=== PATIENT | male | born 1940 | race Caucasian/White ===

== ENCOUNTER 2020-01-19 08:25 | Outpatient (CLI) | payer MEDICARE, OTHER, SELFPAY ==
[2020-01-19 09:06] LABS: Alanine Aminotransferase 21 U/L (4-50); Albumin Level 4.1 g/dL (3.5-5.1); Alkaline Phosphatase 111 U/L (38-126); Aspartate Amino Transferase 32 U/L (17-59); Blood Urea Nitrogen 34 mg/dL (9-20); Calcium 9.5 mg/dL (8.4-10.2); Carbon Dioxide 30 mmol/L (22-30); Chloride 105 mmol/L (98-107); Estimated Glomerular Filt Rate 49; Glucose 121 mg/dL (75-110); Potassium 4.6 mmol/L (3.4-5.0); Sodium 141 mmol/L (137-145)
== END 2020-01-19 08:26 | disposition home or self-care (01) ==
PROVIDERS: PCP Family Medicine; Visit Provider Family Medicine
DX: I10 Essential (primary) hypertension (principal)
CPT/HCPCS: 36415; 80053

== ENCOUNTER 2020-07-11 01:45 | Outpatient (CLI) | payer MEDICARE, SELFPAY ==
[2020-07-11 18:23] LABS: SARS-CoV-2 RNA PCR Negative
== END 2020-07-11 01:46 | disposition home or self-care (01) ==
LOC: ANHCOVIDDT 01:45
PROVIDERS: Visit Provider Internal Medicine Gastroenterology
DX: Z01.812 Encounter for preprocedural laboratory examination (principal); Z20.828 Contact with and (suspected) exposure to other viral communicable diseases
CPT/HCPCS: 87635; C9803; U0003

== ENCOUNTER 2020-07-13 00:46 | Day surgery (SDC) | payer MEDICARE, SELFPAY ==
[2020-07-04 13:20] VITALS: BMI 30.4
[2020-07-13 06:41] VITALS: BP 157/66; PULSE 62; RESP 18; TEMP 36.6; O2SAT 92
[2020-07-13] MEDS: LACTATED RINGERS 1,000 ML 150 ML IV CONT (07:02)
[2020-07-13 07:30] LABS: INR 1.3; Prothrombin Time 15.5 Seconds (11.1-14.7)
--- NOTE | 2020-07-13 07:35 | WPDANESEPPF ---
Anes - Initial Pre Proc Eval Procedure: Operation Date: 07/13/20 08:00 Proposed Procedures p Esophagogastroduodenoscopy - Nico Blackwood MD Date/Time: 07/13/20 07:35 Surgeon: Nico Blackwood MD Pre Op Diagnosis: dysphagia Patient Data Age: 79 Gender: M Height: 6 ft 1 in Weight: 104.9 kg Last Vital Signs Temp 97.8 F 07/13/20 06:41 Pulse 62 07/13/20 06:41 Resp 18 07/13/20 06:41 BP 157/66 H 07/13/20 06:41 Pulse Ox 92 07/13/20 06:41 Allergies Allergy/AdvReac Type Severity Reaction Status Date / Time Penicillins Allergy Unknown Rash Verified 07/13/20 06:59 Home Medications Medication Instructions Recorded Confirmed Type albuterol sulfate 90 mcg/actuation 1 puff INHALATION Q4H PRN 09/24/19 07/04/20 History aerosol inhaler atorvastatin 20 mg tablet 20 mg PO DAILY 09/24/19 07/04/20 History celecoxib 200 mg capsule 200 mg PO DAILY 09/24/19 07/04/20 History fluticasone furoate 200 1 inhalation INHALATION DAILY 09/24/19 07/04/20 History mcg-vilanterol 25 mcg/dose inhalation powder lisinopril 40 mg tablet 40 mg PO DAILY 09/24/19 07/04/20 History lorazepam 0.5 mg tablet 0.5 mg PO TID PRN 09/24/19 07/04/20 History spironolactone 25 0.5 tablet PO DAILY tablet 09/24/19 07/04/20 History mg-hydrochlorothiazide 25 mg tablet warfarin 4 mg tablet 4 mg PO QMWF 09/24/19 07/04/20 History furosemide 40 mg tablet 40 mg PO QAM #90 tablet 03/24/20 07/04/20 Rx famotidine 20 mg tablet 20 mg PO BID #60 tablet 05/23/20 07/04/20 Rx Laboratory Tests 07/13/20 06:53 PT 15.5 Seconds H Seconds (11.1-14.7) INR 1.3 Patient hx anesthesia problems: none Family hx anesthesia problems: none PMFSH Past Medical History Medical History (Updated 07/13/20 @ 07:34 by Jayy Landin MD) Chronic atrial fibrillation COPD (chronic obstructive pulmonary disease) Hypertensive heart disease with heart failure Surgical History Surgical History (Updated 07/13/20 @ 07:34 by Jayy Landin MD) S/P AVR (aortic valve replacement) Social History Social History (Updated 05/17/20 @ 10:54 by Samantha Corey) Smoking packs per day: 0.75 Smoking cigarettes per day: 15.0 Years smoked: 60 Smoking pack-years: 45.00 Smoking status: Heavy tobacco smoker Tobacco type: cigarettes Second hand tobacco smoke exposure: No Alcohol intake: current Drinks per week: 2 Substance use: never Substance use type: does not use Gender identity (if verbalized by the patient): Male Anes - Eval Final PreProcedure Day of Procedure 07/13/20 07:35 Patient weight: normal Heart: regular rate and rhythm Lungs: clear to auscultation Airway: Mallampati scale class III Neurological: alert and oriented Last oral intake: >/= 8 hours ASA classification: III Emergent: no Anesthetic plan: proceed Anesthesia type and monitoring: general GIVS and standard monitoring Informed Consent: The patient's anesthetic plan and its attendant risks and benefits were discussed with the patient/family/POA. Questions were solicited and answers provided to the satisfaction of the patient/family/POA.
--- NOTE | 2020-07-13 07:51 | WPDGICN ---
Assessment and Plan Assessment and plan (1) Dysphagia: Code(s): R13.10 - Dysphagia, unspecified Status: Acute Assessment and Plan: Patient is difficulty swallowing. With food catching the mid substernal portion the chest strongly suggestive of esophageal narrowing. Plan is for EGD to evaluate. Anticoagulation will be held under the direction of the cardiology service prior to procedure so that dilatation and/or biopsy may be accomplished. Further recommendations will be given after endoscopy. (2) S/P AVR (aortic valve replacement): Code(s): Z95.2 - Presence of prosthetic heart valve Status: Acute (3) Current use of terminal system operator anticoagulation: Code(s): Z79.01 - ad terminal makeup operator (current) use of anticoagulants Status: Acute GI Consult Note Consult date/time: 07/13/20 07:51 HPI: Agustín So is a 79 year old male Seen in evaluation at the request of Dr. Truman Tee. Patient complains of difficulty swallowing over the last year. When eats food will catch in the mid substernal portion of the chest. This often requires it to be regurgitated. States he has difficulty both with solids and liquids. He does notice concomitant discomfort pain when this happens. This occurs on a very frequent basis almost daily. Patient has to consistently be careful with his food intake. Patient reports low weight loss 1 year ago. This is an unspecified amount. Appears to have stabilized this year. Patient denies any bleeding. He denies any prior history of heartburn. He is maintained on omeprazole chronically. Past medical history is significant for a mechanical heart valve , He also has a history of atrial fibrillation.for which she is on warfarin anticoagulation this will be held for several days prior To endoscopy. with Lovenox under the direction of his cardiology service. Review of Systems Review of Systems: All systems reviewed & are unremarkable except as noted in HPI and below PMFSH Past Medical History Medical History (Updated 07/13/20 @ 07:54 by Nico Blackwood MD) Chronic atrial fibrillation COPD (chronic obstructive pulmonary disease) Hypertensive heart disease with heart failure Surgical History Surgical History (Updated 07/13/20 @ 07:54 by Nico Blackwood MD) S/P AVR (aortic valve replacement) Social History Social History (Updated 05/17/20 @ 10:54 by Samantha Corey) Smoking packs per day: 0.75 Smoking cigarettes per day: 15.0 Years smoked: 60 Smoking pack-years: 45.00 Smoking status: Heavy tobacco smoker Tobacco type: cigarettes Second hand tobacco smoke exposure: No Alcohol intake: current Drinks per week: 2 Substance use: never Substance use type: does not use Gender identity (if verbalized by the patient): Male Meds Home Medications and Allergies Home Medications Medication Instructions Recorded Confirmed Type albuterol sulfate 90 mcg/actuation 1 puff INHALATION Q4H PRN 09/24/19 07/04/20 History aerosol inhaler atorvastatin 20 mg tablet 20 mg PO DAILY 09/24/19 07/04/20 History celecoxib 200 mg capsule 200 mg PO DAILY 09/24/19 07/04/20 History fluticasone furoate 200 1 inhalation INHALATION DAILY 09/24/19 07/04/20 History mcg-vilanterol 25 mcg/dose inhalation powder lisinopril 40 mg tablet 40 mg PO DAILY 09/24/19 07/04/20 History lorazepam 0.5 mg tablet 0.5 mg PO TID PRN 09/24/19 07/04/20 History spironolactone 25 0.5 tablet PO DAILY tablet 09/24/19 07/04/20 History mg-hydrochlorothiazide 25 mg tablet warfarin 4 mg tablet 4 mg PO QMWF 09/24/19 07/04/20 History furosemide 40 mg tablet 40 mg PO QAM #90 tablet 03/24/20 07/04/20 Rx famotidine 20 mg tablet 20 mg PO BID #60 tablet 05/23/20 07/04/20 Rx Allergies Allergy/AdvReac Type Severity Reaction Status Date / Time Penicillins Allergy Unknown Rash Verified 07/13/20 06:59 Vital Signs Vital Signs - 24 hr 07/13/20 06:41 Temperature 97.8 F Pulse Rate 62 Respi
[2020-07-13] MEDS: BENZOCAINE (*SP) 60 ML SPRAY CAN (HURRICAINE) 1 SPRAY MUCOUS MEM (08:06)
[2020-07-13 08:21] VITALS: BP 138/105; PULSE 64; RESP 16; O2SAT 93
[2020-07-13 08:31] VITALS: BP 116/59; PULSE 62; RESP 22; O2SAT 99
[2020-07-13 08:41] VITALS: BP 122/66; PULSE 56; RESP 15; O2SAT 98
== END 2020-07-13 08:55 | disposition home or self-care (01) ==
PROVIDERS: Visit Provider Internal Medicine Gastroenterology
PROC: 0DJ08ZZ Inspection of Upper Intestinal Tract, Via Natural or Artificial Opening Endoscopic (ICD-10-PCS; CPT 43235; principal; 2020-07-13 08:00)
DX: R13.10 Dysphagia, unspecified (principal); K21.0 Gastro-esophageal reflux disease with esophagitis; K26.3 Acute duodenal ulcer without hemorrhage or perforation; K29.80 Duodenitis without bleeding; Q39.4 Esophageal web; Z95.2 Presence of prosthetic heart valve; Z79.01 Long term (current) use of anticoagulants
CPT/HCPCS: 43239; 43450; 36415; 85610; 88305; J2704; J3370; J7120

== ENCOUNTER 2020-09-18 07:05 | Outpatient (CLI) | payer MEDICARE, SELFPAY ==
[2020-09-18 08:02] LABS: Hematocrit 39.3 % (42.0-52.0); Hemoglobin 12.8 g/dL (14.0-18.0); Mean Corpuscular HGB Conc 32.6 g/dl (32-36); Mean Corpuscular Hemoglobin 28.7 pg (26-34); Mean Corpuscular Volume 88.1 fl (80-100); Mean Platelet Volume 9.9 fl (7.4-10.4); Platelet Count Result 171 k/mm3 (150-375); Red Blood Count 4.46 M/mm3 (4.6-6.20); Red Cell Distribution Width 13.5 % (11.5-14.5); White Blood Count 7.5 K/mm3 (4.5-10.0)
[2020-09-18 08:12] LABS: Add Urine Microscopic? YES; Appearance Urine Clear (Clear); Bilirubin Urine Negative (Negative); Blood Urine 2+ (Negative); Color Urine Yellow (Yellow); Glucose Urine UA Negative (Negative); Ketones Urine Negative (Negative); Leukocyte Esterase Ur 1+ LEU/UL (Negative); Mucus Urine Rare /lpf; Nitrate Urine Negative (Negative); Protein Urine 2+ mg/dL (Negative); Specific Grav Ur 1.017 (1.001-1.035); Squamous Epithelial Cell Urine Rare /hpf (Few); Urobilinogen Urine Negative mg/dL (<2.0)
[2020-09-18 08:15] LABS: Alanine Aminotransferase 16 U/L (4-50); Albumin Level 3.7 g/dL (3.5-5.1); Alkaline Phosphatase 110 U/L (38-126); Anion Gap 3 mmol/L (8-16); Aspartate Amino Transferase 28 U/L (17-59); Bilirubin,Total 0.7 mg/dL (0.2-1.3); Blood Urea Nitrogen 34 mg/dL (9-20); Calcium 9.4 mg/dL (8.4-10.2); Carbon Dioxide 31 mmol/L (22-30); Chloride 106 mmol/L (98-107); Cholesterol 123 mg/dL (0-200); Estimated Glomerular Filt Rate 59; Glucose 108 mg/dL (75-110); HDL Direct 37 mg/dL; Potassium 4.9 mmol/L (3.4-5.0); Sodium 140 mmol/L (137-145); Triglycerides 82 mg/dL (<150)
[2020-09-18 08:26] LABS: LDL Cholesterol Direct 59 mg/dL
== END 2020-09-18 07:06 | disposition home or self-care (01) ==
PROVIDERS: Visit Provider Family Medicine
DX: E78.2 Mixed hyperlipidemia (principal); R53.83 Other fatigue; I10 Essential (primary) hypertension
CPT/HCPCS: 36415; 80053; 80061; 81001; 84443; 85027; 87086; 87088

== ENCOUNTER 2021-01-30 08:36 | Outpatient (CLI) | payer MEDICARE, SELFPAY ==
--- NOTE | ~2021-01-30 | XR_ITS ---
EXAMINATION: XR chest 2V DATE: 01/30/2021 08:57 INDICATION: Shortness of breath, cough and weakness TECHNIQUE: PA and lateral views of the chest were obtained. COMPARISON: Chest radiograph dated 09/24/2019 FINDINGS: Again seen are bilateral coarse reticular opacities with peripheral and lower lung predominance. Mild patchy airspace opacities as well as bronchiectatic changes at the lower lung zones. No pneumothorax or definitive pleural effusion. Cardiomegaly. Median sternotomy wires and mediastinal surgical clips are seen, likely from prior coronary artery bypass grafting. Prosthetic aortic valve. Osteoarthriti s at the bilateral shoulders, severe at the right glenohumeral joint. IMPRESSION: 1. Slight progression in bilateral interstitial airspace disease with lower lung predominance with as sociated bronchiectatic changes consistent with chronic interstitial lung disease, possibly with supe rimposed bibasilar pulmonary edema or pneumonia. 2. Cardiomegaly. Reviewed, dictated and finalized at location B. IMPRESSION: 1. Slight progression in bilateral interstitial airspace disease with lower arun g predominance with associated bronchiectatic changes consistent with chronic i nterstitial lung disease, possibly with superimposed bibasilar pulmonary edema or pneumonia. 2. Cardiomegaly.
[2021-01-30 09:18] LABS: Basophils Percent Auto 0.4 % (0.2-1.2); Eosinophils Absolute Auto 0.1 K/mm3 (0-0.3); Eosinophils Percent Auto 1.1 % (0-4.4); Hematocrit 38.3 % (42.0-52.0); Hemoglobin 11.7 g/dL (14.0-18.0); Immature Granulocyte Absolute 0.02 K/mm3 (0.00-0.031); Immature Granulocyte Percent A 0.3 % (0-0.5); Lymphocytes Absolute Auto 0.75 K/mm3 (0.9-3.2); Lymphocytes Percent Auto 10.7 % (18.3-44.2); Mean Corpuscular HGB Conc 30.5 g/dl (32-36); Mean Corpuscular Hemoglobin 26.7 pg (26-34); Mean Corpuscular Volume 87.4 fl (80-100); Mean Platelet Volume 10.7 fl (7.4-10.4); Monocytes Absolute Auto 0.7 K/mm3 (0.1-0.6); Monocytes Percent Auto 9.3 % (2.6-8.5); Neutrophils Absolute Auto 5.5 K/mm3 (1.3-6.7); Neutrophils Percent Auto 78.2 % (45.5-73.1); Platelet Count Result 174 k/mm3 (150-375); Red Blood Count 4.38 M/mm3 (4.6-6.20); Red Cell Distribution Width 15.5 % (11.5-14.5)
[2021-01-30 09:31] LABS: Anion Gap 4 mmol/L (8-16); Blood Urea Nitrogen 33 mg/dL (9-20); Calcium 8.9 mg/dL (8.4-10.2); Carbon Dioxide 34 mmol/L (22-30); Chloride 104 mmol/L (98-107); Estimated Glomerular Filt Rate 45; Glucose 179 mg/dL (75-110); Potassium 3.7 mmol/L (3.4-5.0); Sodium 142 mmol/L (137-145)
[2021-01-30 09:39] LABS: NT Pro B Type Natriuretic Pept 1670 PG/ML (5-100)
== END 2021-01-30 08:37 | disposition home or self-care (01) ==
PROVIDERS: PCP Family Medicine; Visit Provider Internal Medicine Cardiovascular Disease
DX: R06.02 Shortness of breath (principal); I51.9 Heart disease, unspecified; R05 Cough; R53.1 Weakness; M19.012 Primary osteoarthritis, left shoulder; M19.011 Primary osteoarthritis, right shoulder; Z95.2 Presence of prosthetic heart valve
CPT/HCPCS: 36415; 71046; 80048; 83880; 85025

== ENCOUNTER 2021-02-12 07:42 | Outpatient (CLI) | payer MEDICARE, SELFPAY ==
[2021-02-12 08:13] LABS: Anion Gap 5 mmol/L (8-16); Blood Urea Nitrogen 65 mg/dL (9-20); Calcium 8.9 mg/dL (8.4-10.2); Carbon Dioxide 37 mmol/L (22-30); Chloride 99 mmol/L (98-107); Estimated Glomerular Filt Rate 29; Glucose 244 mg/dL (75-110); Potassium 4.1 mmol/L (3.4-5.0); Sodium 141 mmol/L (137-145)
== END 2021-02-12 07:43 | disposition home or self-care (01) ==
PROVIDERS: PCP Family Medicine; Visit Provider Nurse Practitioner Adult Health
DX: I50.43 Acute on chronic combined systolic (congestive) and diastolic (congestive) heart failure (principal)
CPT/HCPCS: 36415; 80048

== ENCOUNTER 2021-02-19 13:04 | Outpatient (CLI) | payer MEDICARE, SELFPAY ==
[2021-02-19 13:44] LABS: Anion Gap 5 mmol/L (8-16); Blood Urea Nitrogen 50 mg/dL (9-20); Calcium 9.5 mg/dL (8.4-10.2); Carbon Dioxide 33 mmol/L (22-30); Chloride 105 mmol/L (98-107); Estimated Glomerular Filt Rate 32; Glucose 114 mg/dL (75-110); Potassium 4.8 mmol/L (3.4-5.0); Sodium 143 mmol/L (137-145)
== END 2021-02-19 13:05 | disposition home or self-care (01) ==
PROVIDERS: PCP Family Medicine; Visit Provider Internal Medicine Cardiovascular Disease
DX: I51.9 Heart disease, unspecified (principal)
CPT/HCPCS: 36415; 80048

== ENCOUNTER 2021-04-10 15:29 | Outpatient (CLI) | payer BC, SELFPAY ==
--- NOTE | ~2021-04-10 | XR_ITS ---
XR thoracic spine 3V 04/10/2021 15:46 Indication: Back pain Procedure: 3 views thoracic spine Comparison: No prior studies for comparison. Findings: Status post median sternotomy for CABG. There is a prosthetic heart valve. Cardiomegaly. Th ere is chronic interstitial lung disease bilaterally. There is atherosclerosis. There is mild disc na rrowing and endplate degenerative change at multiple levels. No fracture or traumatic malalignment. N o evidence for listhesis. No significant paraspinal soft tissue abnormality. There is tracheobronchia l calcification. Impression: 1: Mild thoracic spondylosis. Reviewed, dictated and finalized at location A. Impression: 1: Mild thoracic spondylosis.
== END 2021-04-10 15:30 | disposition home or self-care (01) ==
LOC: ANHIMG 15:33
PROVIDERS: PCP Family Medicine; Visit Provider Physician Assistant
DX: M54.6 Pain in thoracic spine (principal); M47.814 Spondylosis without myelopathy or radiculopathy, thoracic region
CPT/HCPCS: 72072

== ENCOUNTER 2021-06-29 08:47 | Emergency (ER) | payer BC, SELFPAY ==
--- NOTE | ~2021-06-29 | XR_ITS ---
XR foot LT 2V DATE: 06/29/2021 09:30 INDICATION: Pain at medial aspect and ball of foot. No injury. TECHNIQUE: AP and lateral views COMPARISON: None FINDINGS: There is hallux valgus and bunion deformity. There is mild to moderate osteoarthritis at th e first metatarsophalangeal joint. Prominent plantar calcaneal enthesopathy. No fracture, dislocation, periosteal reaction or bone destruction. IMPRESSION: Hallux valgus and bunion deformity Osteoarthritis at first metatarsophalangeal joint Prominent plantar calcaneal enthesopathy Reviewed, dictated and finalized at location A.
--- NOTE | 2021-06-29 09:31 | ED.LOWEXIN ---
HPI - Extremity Injury (Lower) General Chief Complaint: Extremity Injury, Lower Stated Complaint: left foot pain Time Seen by Provider: 06/29/21 09:18 History of Present Illness HPI Narrative: 80 yo w/ history of gout presents to the ED for foot pain. He has had pain in the left foot at the base of the toes for the past 2 days. Minimal pain when nothing is touching it severe pain with pressure. He had a previous episode in the oposite foot. It sounds like he had elevated uric acid and was told that it was most likely gout. Related Data Home Medications Medication Instructions Recorded Confirmed albuterol sulfate 90 mcg/actuation 1 puff INHALATION Q4H PRN 09/24/19 04/10/21 aerosol inhaler lisinopril 40 mg tablet 40 mg PO DAILY 09/24/19 04/10/21 lorazepam 0.5 mg tablet 0.5 mg PO TID PRN 09/24/19 04/10/21 spironolactone 25 0.5 tablet PO DAILY tablet 09/24/19 04/10/21 mg-hydrochlorothiazide 25 mg tablet warfarin 4 mg tablet 4 mg PO QMWF 09/24/19 04/10/21 furosemide 40 mg tablet 20 mg PO QAM tablet 03/13/21 04/10/21 Allergies Allergy/AdvReac Type Severity Reaction Status Date / Time Penicillins Allergy Unknown Rash Verified 06/29/21 09:56 Review of Systems Constitutional: Constitutional: Denies chills and Denies fever(s) Cardiovascular: Cardiovascular: Denies chest pain Respiratory: Respiratory: Denies dyspnea Gastrointestinal: Gastrointestinal: Denies nausea Genitourinary: Genitourinary: Reports no additional male genitourinary complaints Musculoskeletal: Musculoskeletal: Denies back pain Neurologic: Denies numbness and Denies weakness FOR[facility]LY [facility], [facility] Past Medical History Medical History Chronic atrial fibrillation Chronic kidney disease, stage 3 unspecified COPD (chronic obstructive pulmonary disease) Hyp ht/kd NOS I-IV w hf Hypertensive heart disease with heart failure Surgical History Surgical History S/P AVR (aortic valve replacement) Social History Social History Smoking packs per day: 0.75 Smoking cigarettes per day: 15.0 Years smoked: 60 Smoking pack-years: 45.00 Smoking status: Heavy tobacco smoker Tobacco type: cigarettes Second hand tobacco smoke exposure: No Alcohol intake: current Drinks per week: 2 Substance use: never Substance use type: does not use Gender identity (if verbalized by the patient): Male Exam Const: General: no acute distress and alert Orientation/consciousness: patient oriented x3 HENMT: Head: normal to inspection Resp: Effort & Inspection: normal respiratory effort Auscultation: clear to auscultation bilaterally Cardio: Rate: regular rate Rhythm: abnormal rhythm irregularly irregular Heart sounds: Murmur heart sound present Skin: General skin exam: normal color Neuro: General: patient oriented x3, moves all extremities and no focal motor deficits Speech: normal speech Extrem: Other: tenderness to the plantar aspect of the foot from midfoot. No significant swelling or redness Course Vital Signs Vital signs: Vital Signs Temperature 36.4 C L 06/29/21 09:47 Pulse Rate 62 06/29/21 09:47 Respiratory Rate 18 06/29/21 09:47 Blood Pressure 133/58 L 06/29/21 09:47 Pulse Oximetry 95 06/29/21 09:47 Temperature 36.4 C L 06/29/21 09:47 Pulse Rate 62 06/29/21 09:47 Respiratory Rate 18 06/29/21 09:47 Blood Pressure 133/58 L 06/29/21 09:47 Pulse Oximetry 95 06/29/21 09:47 MDM - Extremity Injury (Lower) Imaging Data Radiologist's impression: ITS Impressions Foot X-Ray 06/29/21 09:32 IMPRESSION: Hallux valgus and bunion deformity Osteoarthritis at first metatarsophalangeal joint Prominent plantar calcaneal enthesopathy Discharge Plan Discharge Clinical Impression: Acute foot pain Qualifiers: Laterality: left Artie
[2021-06-29] MEDS: predniSONE 20 MG TABLET 40 MG PO (09:39)
[2021-06-29] MEDS: HYDROcodone/acetaminophen (*CRX) 5-325 MG TABLET 1 TAB PO (09:40)
[2021-06-29 09:47] VITALS: BP 133/58; PULSE 62; RESP 18; TEMP 36.4; O2SAT 95
== END 2021-06-29 11:07 | disposition home or self-care (01) ==
PROVIDERS: Emergency Provider Emergency Medicine; PCP Family Medicine
DX: M79.672 Pain in left foot (principal); I48.20 Chronic atrial fibrillation, unspecified; I13.0 Hypertensive heart and chronic kidney disease with heart failure and stage 1 through stage 4 chronic kidney disease, or unspecified chronic kidney disease; N18.30 Chronic kidney disease, stage 3 unspecified; I50.9 Heart failure, unspecified; F17.210 Nicotine dependence, cigarettes, uncomplicated; Z79.01 Long term (current) use of anticoagulants; Z95.2 Presence of prosthetic heart valve; Z88.0 Allergy status to penicillin
CPT/HCPCS: 73620; 99283; A9270; J7512

== ENCOUNTER 2021-07-18 09:27 | Outpatient (CLI) | payer MEDICARE, SELFPAY ==
[2021-07-18 10:26] LABS: Uric Acid 11.5 mg/dL (3.5-8.5)
== END 2021-07-18 09:28 | disposition home or self-care (01) ==
PROVIDERS: PCP Family Medicine; Visit Provider Family Medicine
DX: M79.672 Pain in left foot (principal); M10.9 Gout, unspecified
CPT/HCPCS: 36415; 84550

== ENCOUNTER → 2021-08-04 00:23 | Outpatient (CLI) | payer MEDICARE, SELFPAY ==
[2021-08-04 18:09] LABS: SARS-CoV-2 RNA PCR Negative
== END ==
PROVIDERS: PCP Family Medicine; Visit Provider Physician Assistant
DX: Z20.822 Contact with and (suspected) exposure to COVID-19 (principal); R05 Cough
CPT/HCPCS: C9803; U0003; U0005

== ENCOUNTER 2021-09-11 09:17 | Outpatient (CLI) | payer MEDICARE, SELFPAY ==
[2021-09-11 09:46] LABS: Hematocrit 39.1 % (42.0-52.0); Hemoglobin 12.2 g/dL (14.0-18.0); Mean Corpuscular HGB Conc 31.2 g/dl (32-36); Mean Corpuscular Volume 93.1 fl (80-100); Mean Platelet Volume 9.7 fl (7.4-10.4); Platelet Count Result 180 k/mm3 (150-375); Red Cell Distribution Width 15.3 % (11.5-14.5); White Blood Count 8.6 K/mm3 (4.5-10.0)
[2021-09-11 09:55] LABS: Add Urine Microscopic? YES; Appearance Urine Clear (Clear); Bilirubin Urine Negative (Negative); Blood Urine 1+ (Negative); Color Urine Yellow (Yellow); Glucose Urine UA Negative (Negative); Ketones Urine Negative (Negative); Leukocyte Esterase Ur Trace LEU/UL (NEGATIVE); Mucus Urine Rare /lpf; Nitrate Urine Negative (Negative); Protein Urine 1+ mg/dL (Negative); Specific Grav Ur 1.014 (1.001-1.035); Squamous Epithelial Cell Urine Rare /hpf (Few)
[2021-09-11 10:00] LABS: Alanine Aminotransferase 18 U/L (4-50); Alkaline Phosphatase 117 U/L (38-126); Anion Gap 7 mmol/L (8-16); Aspartate Amino Transferase 33 U/L (17-59); Bilirubin,Total 1.1 mg/dL (0.2-1.3); Blood Urea Nitrogen 32 mg/dL (9-20); Calcium 9.4 mg/dL (8.4-10.2); Carbon Dioxide 31 mmol/L (22-30); Chloride 103 mmol/L (98-107); Cholesterol 123 mg/dL (0-200); Estimated Glomerular Filt Rate 53; Glucose 117 mg/dL (65-110); HDL Direct 48 mg/dL; Potassium 4.7 mmol/L (3.4-5.0); Sodium 141 mmol/L (137-145); Triglycerides 71 mg/dL (<150)
[2021-09-11 10:02] LABS: Hemoglobin A1C 6.6 % (<5.7)
[2021-09-11 10:11] LABS: LDL Cholesterol Direct 48 mg/dL
== END 2021-09-11 09:18 | disposition home or self-care (01) ==
LOC: ANHLAB 09:22
PROVIDERS: PCP Family Medicine; Visit Provider Family Medicine
DX: Z00.00 Encounter for general adult medical examination without abnormal findings (principal); E78.5 Hyperlipidemia, unspecified; I25.10 Atherosclerotic heart disease of native coronary artery without angina pectoris; I50.22 Chronic systolic (congestive) heart failure; R73.01 Impaired fasting glucose
CPT/HCPCS: 36415; 80053; 80061; 81001; 83036; 84443; 85027

== ENCOUNTER 2021-09-26 11:33 | Outpatient (CLI) | payer MEDICARE, SELFPAY ==
--- NOTE | ~2021-09-26 | XR_ITS ---
XR chest 2V 09/26/2021 11:56 Indication: Shortness of breath and cough Procedure: PA and lateral views of the chest Comparison: Comparison to multiple prior studies sequentially, with oldest reviewed study dated 04/03. Findings: Status post median sternotomy for CABG. Moderate cardiomegaly. There is atherosclerosis and ectasia of the aorta. There is continued progression of coarse interstitial infiltrates peripherally with basilar predominance. Impression: 1: Continued progression of coarse interstitial infiltrates bilaterally, consistent with chronic pulm onary fibrosis cannot exclude chronic mild interstitial edema. Reviewed, dictated and finalized at location A. U[facility] SORTER Impression: 1: Continued progression of coarse interstitial infiltrates bilaterally, consis tent with chronic pulmonary fibrosis cannot exclude chronic mild interstitial e terry.
== END 2021-09-26 11:34 | disposition home or self-care (01) ==
PROVIDERS: PCP Family Medicine; Visit Provider Nurse Practitioner Family
DX: R05.9 Cough, unspecified (principal); R91.8 Other nonspecific abnormal finding of lung field
CPT/HCPCS: 71046

== ENCOUNTER 2021-10-29 13:32 | Outpatient (CLI) | payer MEDICARE, SELFPAY ==
[2021-10-29 14:41] LABS: Anion Gap 6 mmol/L (8-16); Blood Urea Nitrogen 35 mg/dL (9-20); Calcium 9.4 mg/dL (8.4-10.2); Carbon Dioxide 33 mmol/L (22-30); Chloride 101 mmol/L (98-107); Estimated Glomerular Filt Rate 34; Glucose 124 mg/dL (65-110); Potassium 4.7 mmol/L (3.4-5.0); Sodium 140 mmol/L (137-145)
== END 2021-10-29 13:33 | disposition home or self-care (01) ==
LOC: ANHLAB 13:36
PROVIDERS: PCP Family Medicine; Visit Provider Internal Medicine Cardiovascular Disease
DX: I51.9 Heart disease, unspecified (principal)
CPT/HCPCS: 36415; 80048

== ENCOUNTER 2021-11-02 09:32 | Outpatient (CLI) | payer MEDICARE, SELFPAY ==
[2021-11-05 07:35] LABS: Anti Cyclic Citrullinated Pept <16 Units (<20)
[2021-11-05 19:13] LABS: JO 1 Antibody <1.0
[2021-11-06 20:49] LABS: SS-A <1.0; SS-B <1.0
[2021-11-09 12:56] LABS: ANCA Screen P-ANCA POS (Negative)
[2021-11-09 13:13] LABS: P-ANCA Titer 1:40 Titer (<1:20); P-ANCA Titer Reflex Chg Test YES
== END 2021-11-02 09:33 | disposition home or self-care (01) ==
PROVIDERS: PCP Family Medicine; Visit Provider Internal Medicine Pulmonary Disease
DX: J84.10 Pulmonary fibrosis, unspecified (principal)
CPT/HCPCS: 36415; 86021; 86038; 86200; 86235

== ENCOUNTER 2021-12-06 10:07 | Outpatient (CLI) | payer MEDICARE, SELFPAY ==
--- NOTE | ~2021-12-06 | CT_ITS ---
EXAMINATION: CT diagnostic chest wo con EXAM DATE: 12/06/2021 10:52 INDICATION: J84.10 - Pulmonary fibrosis, unspecified . TECHNIQUE: Spiral CT of the chest without contrast. Axial, coronal and sagittal images of the chest were reviewed. Coronal maximum intensity pixel images of chest reviewed. The dose-length product ( DLP) for this examination was 581.47 mGy-cm. The exposure was tailored according to patient size (au to mA exposure control), and iterative reconstruction (ASIR) was used as additional dose reduction te chnique. Correlation is made to abdomen pelvis CT 04/11/2018. FINDINGS: There is moderate to severe irregular septal thickening seen with peripheral bibasilar pred ominance and areas of groundglass opacity. 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 There is mild bronchiectasis and emphysema. There are no pleural or pericardial effusions. There is 6 mm right lower lobe pleural-based noncalcif ied granuloma unchanged. Tracheobronchial tree is patent. Mediastinal lymphadenopathy, with a large r right lower paratracheal lymph node measuring 2.2 x 1.5 cm. This can be a feature of interstitial l sean disease. There is no pneumothorax. Severe cardiomegaly. The main, central pulmonary arteries a re dilated which can indicate elevated pulmonary arterial pressure, pulmonary arterial hypertension. There are sternotomy wires, and cardiac/coronary surgical changes. Correlate with prior history. Ao rtic valve replacement. Upper abdomen is unremarkable. There is mild thoracic spondylosis without osteoblastic or osteolytic lesions identified. IMPRESSION: 1. Cardiomegaly, pulmonary arterial dilation and pulmonary vascular congestion. 2. 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 Some c omponent of pulmonary edema not excludable. 3. Mediastinal lymphadenopathy which could be reactive. Lymphoma not excludable. 4. Mild bronchiectasis and emphysema. Reviewed, dictated and finalized at location B. [employer] IMPRESSION: 1. Cardiomegaly, pulmonary arterial dilation and pulmonary vascular congestion . 2. 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 Some component of pulmonary edema not excludable. 3. Mediastinal lymphadenopathy which could be reactive. Lymphoma not excludabl e. 4. Mild bronchiectasis and emphysema.
[2021-12-09 18:17] LABS: SS-A <1.0; SS-B <1.0
== END 2021-12-06 10:08 | disposition home or self-care (01) ==
PROVIDERS: PCP Family Medicine; Visit Provider Internal Medicine Pulmonary Disease
DX: J84.10 Pulmonary fibrosis, unspecified (principal); I51.7 Cardiomegaly; R59.1 Generalized enlarged lymph nodes; J47.9 Bronchiectasis, uncomplicated; J43.9 Emphysema, unspecified
CPT/HCPCS: 36415; 71250; 86235

== ENCOUNTER 2021-12-31 12:07 | Outpatient (CLI) | payer MEDICARE, SELFPAY ==
--- NOTE | 2021-12-31 15:36 | WPDSIXMINUTE ---
Six Minute Walk Procedure Procedure Performed Pulmonary Stress Test (6 min walk) Six Minute Walk This is a 6 minute walk test. The test was performed and interpreted in accordance with the 2014 ERS/ATS task force guidelines. Findings: The patient's resting room air oxygen saturation measured by pulse oximetry was 95% and heart rate was 57 bpm. Patient ambulated for 213 meters and oxygen saturation remained 89 to 98%. Heart rate at the end of the study was 72 bpm. The patient did not qualify for supplemental oxygen at rest or with ambulation. There are no prior studies for comparison.
--- NOTE | 2021-12-31 15:37 | WPDPFTINT ---
PFT Procedure Performed PFT Procedure Performed Spirometry with Pre/Post Bronchodilator Plethysmography (Lung Vol) Diffusing Cap (DLCO) Flow Vol Loop PFT Interpretation This is a pulmonary function test with pre and post-bronchodilator spirometry, plethysmography and diffusing capacity. The test was performed and results interpreted in accordance with the 2019 and 2005 ATS/ERS Task Force guidelines respectively using the Global Lung Function Initiative-2012 reference equations. Patient demonstrated good effort and cooperation. Reproducibility criteria were met. The quality of the pre bronchodilator spirometry maneuver was Grade A and post bronchodilator spirometry maneuver was Grade A. Findings: Spirometry: There is decreased maximal expiratory airflow at low lung volumes with mildly concave expiratory flow tracing. The pre bronchodilator FVC is 2.75 L, 64% predicted. The pre bronchodilator FEV1 is 1.91 L, 60% predicted. The pre bronchodilator FEV1: FVC ratio 69% predicted. The post bronchodilator FVC is 2.75 L, representing no change. The post bronchodilator FEV1 is 1.90 L, representing no change. The post bronchodilator FEV1: FVC ratio is 69%. Plethysmography: The total lung capacity is 4.15 L, 54% predicted. The functional residual capacity is 2.33 L, 56% predicted. The residual volume is 1.35 L, 48% predicted. Diffusing capacity: The diffusing capacity unadjusted for hemoglobin is 9.9, 39% predicted. The diffusing capacity adjusted for alveolar volume is 2.55, 73% predicted. Impression: There is a combined obstructive and restrictive ventilatory abnormality. There are no guidelines to assign the severity of obstruction and restriction with a combined abnormality. In my opinion, given the mildly concave expiratory flow tracing and normal FEV1: FVC ratio and moderate restrictive abnormality I would state there is a mild obstructive abnormality and a moderate restrictive abnormality resulting in a moderate decreased FEV1. There is no significant improvement after inhaling a single dose of albuterol. The diffusing capacity unadjusted for hemoglobin is severely decreased and normalizes when adjusted for alveolar volume. There are no prior studies for comparison
== END 2021-12-31 12:08 | disposition home or self-care (01) ==
LOC: ANHPFT 12:11
PROVIDERS: PCP Family Medicine; Visit Provider Internal Medicine Pulmonary Disease
DX: J84.10 Pulmonary fibrosis, unspecified (principal); R94.2 Abnormal results of pulmonary function studies
CPT/HCPCS: 94060; 94618; 94726; 94729

== ENCOUNTER 2022-01-07 11:44 | Outpatient (CLI) | payer MEDICARE, SELFPAY ==
[2022-01-07 12:34] LABS: Alanine Aminotransferase 17 U/L (4-50); Albumin Level 4.2 g/dL (3.5-5.1); Alkaline Phosphatase 139 U/L (38-126); Anion Gap 7 mmol/L (8-16); Aspartate Amino Transferase 31 U/L (17-59); Bilirubin,Total 0.9 mg/dL (0.2-1.3); Blood Urea Nitrogen 46 mg/dL (9-20); Carbon Dioxide 29 mmol/L (22-30); Chloride 104 mmol/L (98-107); Estimated Glomerular Filt Rate 49; Glucose 136 mg/dL (65-110); Potassium 4.5 mmol/L (3.4-5.0); Sodium 140 mmol/L (137-145)
== END 2022-01-07 11:45 | disposition home or self-care (01) ==
PROVIDERS: Visit Provider Internal Medicine Cardiovascular Disease
DX: I51.9 Heart disease, unspecified (principal); I48.19 Other persistent atrial fibrillation
CPT/HCPCS: 36415; 80053

== ENCOUNTER 2022-02-19 09:35 | Outpatient (CLI) | payer MEDICARE, SELFPAY ==
--- NOTE | ~2022-02-19 | XR_ITS ---
EXAMINATION: XR ankle LT min 3V DATE: 02/19/2022 09:56 INDICATION: Left ankle pain. TECHNIQUE: 4 views of left ankle were obtained. COMPARISON: Left foot radiographs 06/29/2021 FINDINGS: There is a small fragment of ossification distal to lateral malleolus. Joint spaces are nor mal. There is an enthesophyte at plantar aspect of calcaneal tuberosity. Ankle soft tissue swelling i s noted. IMPRESSION: 1. Small fragment of ossification distal to lateral malleolus, which may be an acute avulsion fractur e or a finding from old injury. Reviewed, dictated and finalized at location A. IMPRESSION: 1. Small fragment of ossification distal to lateral malleolus, which may be an acute avulsion fracture or a finding from old injury.
== END 2022-02-19 09:36 | disposition home or self-care (01) ==
LOC: ANHIMG 09:38
PROVIDERS: PCP Family Medicine; Visit Provider Physician Assistant
DX: M25.572 Pain in left ankle and joints of left foot (principal); R93.7 Abnormal findings on diagnostic imaging of other parts of musculoskeletal system
CPT/HCPCS: 73610

== ENCOUNTER 2022-03-06 15:07 | Outpatient (NON) | payer MEDICARE, SELFPAY | END 2022-03-06 15:08 | disposition home or self-care (01) | PROVIDERS: PCP Family Medicine; Visit Provider Orthopaedic Surgery | DX: M25.472 Effusion, left ankle (principal) | CPT/HCPCS: 87070; 87075; 87205; 89060 ==

== ENCOUNTER 2022-03-19 07:52 | Outpatient (CLI) | payer MEDICARE, SELFPAY ==
--- NOTE | ~2022-03-19 | US_ITS ---
EXAMINATION: US art doppler w amirah ROMEO DATE: 03/19/2022 08:43 INDICATION: Peripheral vascular disease TECHNIQUE: Segmental pressures and plethysmographic and Doppler waveforms of the brachial and lower e xtremity arteries were obtained. COMPARISON: None. FINDINGS: Right and left brachial artery pressures of 114 mm Hg and 124 mm Hg, respectively, are concordant (no rmal difference <= 30 mmHg). The right and left high-thigh pressure indices were unable to be obtaine d due to inability to occlude the vessels at either high thigh (normal > 1.2). The right ankle-brachial index (EMMA) is at least 1.08 (normal >= 0.9-1) based on only pressures in th e right dorsalis pedis artery with the left posterior tibial artery unable to be occluded. The right great toe-brachial index (TBI) is 0.52 (normal >= 0.6-0.8). Arterial waveforms are biphasic with bris k systolic upstrokes throughout the arteries of the right lower limb. The left EMMA is unable to be obtained due to inability to occlude the vessels at the left ankle. The left TBI is 0.60. Arterial waveforms are biphasic with brisk systolic upstrokes throughout the arteri es of the left lower limb. IMPRESSION: 1. Mild arterial occlusive disease to the bilateral lower limbs with mildly decreased right TBI and b orderline decreased left TBI. Reviewed, dictated and finalized at location A. IMPRESSION: 1. Mild arterial occlusive disease to the bilateral lower limbs with mildly dec reased right TBI and borderline decreased left TBI.
== END 2022-03-19 07:53 | disposition home or self-care (01) ==
PROVIDERS: PCP Family Medicine; Visit Provider Orthopaedic Surgery
DX: I73.9 Peripheral vascular disease, unspecified (principal)
CPT/HCPCS: 93923

== ENCOUNTER 2022-03-22 09:06 | Outpatient (CLI) | payer MEDICARE, SELFPAY ==
--- NOTE | ~2022-03-22 | US_ITS ---
EXAMINATION: US venous doppler [facility] DATE: 03/22/2022 11:03 INDICATION: Bilateral lower limb swelling. Lower limb pain with exercise. TECHNIQUE: Grayscale ultrasound images without and with compression and Doppler ultrasound images of the bilateral lower extremity veins were obtained. COMPARISON: None. FINDINGS: The visualized portions of right common femoral vein, profunda (deep) femoral vein, femoral vein, pop liteal vein, posterior tibial veins, peroneal veins and greater saphenous vein outflow are patent. The visualized portions of left common femoral vein, profunda femoral vein, femoral vein, popliteal v ein, posterior tibial veins, peroneal veins and greater saphenous vein outflow are patent. Right standing venous mapping: reflux seconds duration; vein size. Greater saphenous origin: 0 seconds; 9.6 mm. Greater saphenous high thigh:----- 0 seconds; 5.5 mm. Greater saphenous mid thigh:------ 0 seconds; 5.1 mm Greater saphenous distal thigh:---- 0 seconds; 5.7 mm Greater saphenous at the knee:--- 0 seconds; 4.1 mm Greater saphenous below knee:--- 0.6 seconds; 2.5 mm. Lesser saphenous proximally:------ 0 seconds; 1.8 mm. Lesser saphenous distally: 0 seconds; 3.0 mm. Left standing venous mapping: reflux seconds duration; vein size. Greater saphenous origin: 0 seconds; 10.5 mm. Greater saphenous high thigh:----- 0 seconds; 4.8 mm. Greater saphenous mid thigh:------ 0 seconds; 6.1 mm Greater saphenous distal thigh:---- 0 seconds; 4.4 mm Greater saphenous at the knee:--- 0 seconds; 4.8 mm Greater saphenous high calf:------- 0.8 seconds; 4.6 mm. Greater saphenous mid calf:-------- 0 seconds; 4.2 mm. Greater saphenous distal calf:------ 0 seconds; 3.4 mm. Lesser saphenous proximally:------ 0 seconds; 2.2 mm. Lesser saphenous distally: 0 seconds; 2.2 mm. IMPRESSION: 1. No deep venous thrombosis or significant venous reflux in either lower limb. Reviewed, dictated and finalized at location A. IMPRESSION: 1. No deep venous thrombosis or significant venous reflux in either lower limb .
[2022-03-22 11:30] LABS: CRP 0.8 mg/dL (<1.0)
[2022-03-22 11:35] LABS: Complement C3 124 mg/dL (88-165)
[2022-03-22 11:37] LABS: Erythrocyte Sedimentation Rate 120 mm/hr (0-20)
[2022-03-24 13:55] LABS: SM Antibody <1.0; SM/RNP Antibody <1.0
[2022-03-25 20:27] LABS: Myeloperoxidase Antibody <1.0 AI (<1.0); Proteinase 3 PR3 Antibodies <1.0 AI (<1.0)
[2022-03-28 12:16] LABS: Anti Cyclic Citrullinated Pept <16 Units (<20)
== END 2022-03-22 09:07 | disposition home or self-care (01) ==
PROVIDERS: Internal Medicine Pulmonary Disease; PCP Family Medicine; Visit Provider Orthopaedic Surgery
DX: I73.9 Peripheral vascular disease, unspecified (principal); R60.0 Localized edema; J84.10 Pulmonary fibrosis, unspecified
CPT/HCPCS: 36415; 85652; 86036; 86140; 86160; 86200; 86225; 86235; 93970

== ENCOUNTER 2022-06-03 11:32 | Outpatient (CLI) | payer MEDICARE, SELFPAY ==
[2022-06-03 12:27] LABS: Alanine Aminotransferase 34 U/L (6-50); Albumin Level 4.3 g/dL (3.5-5.1); Alkaline Phosphatase 120 U/L (38-126); Anion Gap 5 mmol/L (8-16); Aspartate Amino Transferase 41 U/L (17-59); Bilirubin,Total 0.8 mg/dL (0.2-1.3); Blood Urea Nitrogen 56 mg/dL (9-20); Calcium 9.2 mg/dL (8.4-10.2); Carbon Dioxide 27 mmol/L (22-30); Chloride 109 mmol/L (98-107); Estimated Glomerular Filt Rate 39; Glucose 102 mg/dL (65-110); Potassium 5.4 mmol/L (3.4-5.0); Sodium 141 mmol/L (137-145)
== END 2022-06-03 11:33 | disposition home or self-care (01) ==
PROVIDERS: PCP Family Medicine; Visit Provider Internal Medicine Cardiovascular Disease
DX: I51.9 Heart disease, unspecified (principal)
CPT/HCPCS: 36415; 80053

== ENCOUNTER 2022-06-27 09:10 | Outpatient (CLI) | payer MEDICARE, SELFPAY ==
[2022-06-27 10:21] LABS: Anion Gap 7 mmol/L (8-16); Blood Urea Nitrogen 46 mg/dL (9-20); Calcium 8.7 mg/dL (8.4-10.2); Carbon Dioxide 27 mmol/L (22-30); Chloride 108 mmol/L (98-107); Estimated Glomerular Filt Rate 39; Glucose 172 mg/dL (65-110); Sodium 142 mmol/L (137-145)
== END 2022-06-27 09:11 | disposition home or self-care (01) ==
LOC: ANHLAB 09:14
PROVIDERS: PCP Family Medicine; Visit Provider Internal Medicine Cardiovascular Disease
DX: I10 Essential (primary) hypertension (principal)
CPT/HCPCS: 36415; 80048

== ENCOUNTER 2022-09-09 08:36 | Outpatient (CLI) | payer MEDICARE, SELFPAY ==
--- NOTE | ~2022-09-09 | XR_ITS ---
EXAMINATION: XR elbow RT min 3V INDICATION: Posterior elbow joint swelling and pain TECHNIQUE: Four views of the right elbow were obtained on five radiographs COMPARISON: None available FINDINGS: There is diffuse soft tissue swelling surrounding the elbow, particularly dorsally over the olecranon. An elbow joint effusion is present. 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 IMPRESSION: 1. Diffuse soft tissue swelling of the elbow and moderate osteoarthritis without acute osseous abnorm ality identified. 2. Elbow joint effusion of unclear significance, possibly related to osteoarthritis. Recommend close clinical follow-up as septic joint could have a similar appearance. Reviewed, dictated and finalized at location A. IMPRESSION: 1. Diffuse soft tissue swelling of the elbow and moderate osteoarthritis withou t acute osseous abnormality identified. 2. Elbow joint effusion of unclear significance, possibly related to osteoarthr itis. Recommend close clinical follow-up as septic joint could have a similar a ppearance.
== END 2022-09-09 08:37 | disposition home or self-care (01) ==
LOC: ANHIMG 08:38
PROVIDERS: PCP Family Medicine; Visit Provider Physician Assistant
DX: M25.421 Effusion, right elbow (principal); M25.521 Pain in right elbow; M19.021 Primary osteoarthritis, right elbow; M79.89 Other specified soft tissue disorders
CPT/HCPCS: 73080

== ENCOUNTER 2022-09-24 11:03 | Outpatient (CLI) | payer MEDICARE, SELFPAY ==
[2022-09-24 11:24] LABS: Basophils Percent Auto 0.4 % (0.2-1.2); Eosinophils Absolute Auto 0.1 K/mm3 (0-0.3); Eosinophils Percent Auto 0.9 % (0-4.4); Hematocrit 38.4 % (42.0-52.0); Hemoglobin 12.1 g/dL (14.0-18.0); Immature Granulocyte Absolute 0.04 K/mm3 (0.00-0.031); Immature Granulocyte Percent A 0.4 % (0-0.5); Lymphocytes Absolute Auto 1.08 K/mm3 (0.9-3.2); Lymphocytes Percent Auto 10.9 % (18.3-44.2); Mean Corpuscular HGB Conc 31.5 g/dl (32-36); Mean Corpuscular Hemoglobin 29.7 pg (26-34); Mean Corpuscular Volume 94.1 fl (80-100); Mean Platelet Volume 10.2 fl (7.4-10.4); Monocytes Absolute Auto 1.1 K/mm3 (0.1-0.6); Monocytes Percent Auto 10.8 % (2.6-8.5); Neutrophils Absolute Auto 7.6 K/mm3 (1.3-6.7); Neutrophils Percent Auto 76.6 % (45.5-73.1); Platelet Count Result 162 k/mm3 (150-375); Red Blood Count 4.08 M/mm3 (4.6-6.20); Red Cell Distribution Width 13.8 % (11.5-14.5); White Blood Count 9.9 K/mm3 (4.5-10.0)
[2022-09-24 11:26] LABS: Appearance Urine Clear (Clear); Bilirubin Urine Negative (Negative); Blood Urine Trace-intact (Negative); Color Urine Yellow (Yellow); Glucose Urine UA Negative (Negative); Ketones Urine Negative (Negative); Leukocyte Esterase Ur 2+ LEU/UL (NEGATIVE); Nitrate Urine Negative (Negative); Protein Urine Negative (Negative); Specific Grav Ur 1.015 (1.001-1.035); pH Urine 5.5 (5.0-9.0)
[2022-09-24 11:34] LABS: Alanine Aminotransferase 21 U/L (6-50); Albumin Level 4.3 g/dL (3.5-5.1); Alkaline Phosphatase 126 U/L (38-126); Anion Gap 13 mmol/L (8-16); Aspartate Amino Transferase 31 U/L (17-59); Bilirubin,Total 1.5 mg/dL (0.2-1.3); Blood Urea Nitrogen 41 mg/dL (9-20); Calcium 9.1 mg/dL (8.4-10.2); Carbon Dioxide 29 mmol/L (22-30); Chloride 102 mmol/L (98-107); Cholesterol 150 mg/dL (0-200); Estimated Glomerular Filt Rate 42; Glucose 121 mg/dL (65-110); HDL Direct 54 mg/dL; Potassium 4.6 mmol/L (3.4-5.0); Sodium 144 mmol/L (137-145); Triglycerides 90 mg/dL (<150)
[2022-09-24 11:36] LABS: Hyaline Casts Urine 20-29 /lpf; Mucus Urine Rare /lpf; Squamous Epithelial Cell Urine Occasional /hpf (Few)
[2022-09-24 11:45] LABS: LDL Cholesterol Direct 55 mg/dL
[2022-09-24 12:07] LABS: Add Urine Microscopic? YES
== END 2022-09-24 11:04 | disposition home or self-care (01) ==
PROVIDERS: PCP Family Medicine; Visit Provider Family Medicine
DX: E78.5 Hyperlipidemia, unspecified (principal); I13.0 Hypertensive heart and chronic kidney disease with heart failure and stage 1 through stage 4 chronic kidney disease, or unspecified chronic kidney disease; I25.10 Atherosclerotic heart disease of native coronary artery without angina pectoris; I50.22 Chronic systolic (congestive) heart failure; N18.30 Chronic kidney disease, stage 3 unspecified; J44.9 Chronic obstructive pulmonary disease, unspecified
CPT/HCPCS: 36415; 80053; 80061; 81001; 84443; 85025

== ENCOUNTER 2022-10-09 11:01 | Emergency (ER) | payer MEDICARE, SELFPAY ==
--- NOTE | ~2022-10-09 | CT_ITS ---
EXAMINATION: CT brain wo con DATE: 10/09/2022 11:52 INDICATION: Head injury. TECHNIQUE: Computed tomography (CT) of the head was performed without intravenous contrast. The dose- length product was 605.33 mGy-cm. Automated exposure control and iterative reconstruction technique w ere employed. COMPARISON: None FINDINGS: Generalized atrophy. There are scattered mild periventricular and subcortical white matter changes, most likely related to small vessel ischemic disease (microangiopathy). Chronic right lacuna r infarction. There is intracranial atherosclerosis. Chronic left occipital lobe infarction. No ventr iculomegaly or midline shift. No acute intracranial hemorrhage, infarction or mass. Paranasal sinuses and mastoids are pneumatized. IMPRESSION: 1. No acute intracranial abnormality. 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 3: Chronic age-related findings. Reviewed, dictated and finalized at location B. RUCTOR KINDERGARTEN
--- NOTE | ~2022-10-09 | CT_ITS ---
EXAMINATION: CT cervical spine wo con DATE: 10/09/2022 11:52 INDICATION: Neck injury. TECHNIQUE: Computed tomography (CT) of the cervical spine was performed without intravenous contrast. Automated exposure control and iterative reconstruction technique were employed. The dose-length pro duct was 473.01 mGy-cm. COMPARISON: None FINDINGS: There is hypolordosis of cervical spine. There is 2 mm anterolisthesis of C7 on T1. There i s mild chronic anterior wedging of C5 and C6 vertebral bodies. There is moderately decreased disc hei ght at C3-C4 and severely decreased disc height from C4-C5 through C6-C7 with endplate remodeling. Th e following disc levels are specifically discussed: C2-C3: There is moderate right and mild left uncovertebral joint osteoarthritis. There is severe righ t and moderate left facet joint osteoarthritis. There is mild left neural foraminal stenosis. There i s no central canal stenosis. C3-C4: There is mild right and severe left uncovertebral joint osteoarthritis. There is mild bilatera l facet joint osteoarthritis. There is moderate left neural foraminal stenosis. There is no central c anal stenosis. C4-C5: There is moderate right and severe left uncovertebral joint osteoarthritis. There is severe bi lateral facet joint osteoarthritis. There is mild right and moderate left neural foraminal stenosis. There is no central canal stenosis. C5-C6: There is severe bilateral uncovertebral joint osteoarthritis. There is moderate right and mild left facet joint osteoarthritis. There is mild bilateral neural foraminal stenosis. There is mild ce ntral canal stenosis. C6-C7: There is severe bilateral uncovertebral joint osteoarthritis. There is severe bilateral facet joint osteoarthritis. There is mild bilateral neural foraminal stenosis. There is mild central canal stenosis. C7-T1: There is no uncovertebral joint osteoarthritis. There is severe bilateral facet joint osteoart hritis. There is mild bilateral neural foraminal stenosis. There is no central canal stenosis. IMPRESSION: 1. No fracture. 2. Severe cervical spondylosis. Reviewed, dictated and finalized at location A. N [employer]
[2022-10-09 11:30] VITALS: BP 134/69; PULSE 50; RESP 16; TEMP 36.6; O2SAT 98
[2022-10-09 11:35] LABS: Basophils Percent Auto 0.4 % (0.2-1.2); Eosinophils Absolute Auto 0.1 K/mm3 (0-0.3); Hematocrit 32.1 % (42.0-52.0); Hemoglobin 10.3 g/dL (14.0-18.0); Immature Granulocyte Absolute 0.04 K/mm3 (0.00-0.031); Immature Granulocyte Percent A 0.5 % (0-0.5); Lymphocytes Absolute Auto 0.69 K/mm3 (0.9-3.2); Lymphocytes Percent Auto 8.3 % (18.3-44.2); Mean Corpuscular HGB Conc 32.1 g/dl (32-36); Mean Corpuscular Hemoglobin 30.1 pg (26-34); Mean Corpuscular Volume 93.9 fl (80-100); Monocytes Absolute Auto 0.8 K/mm3 (0.1-0.6); Monocytes Percent Auto 9.9 % (2.6-8.5); Neutrophils Absolute Auto 6.6 K/mm3 (1.3-6.7); Neutrophils Percent Auto 79.9 % (45.5-73.1); Platelet Count Result 127 k/mm3 (150-375); Red Blood Count 3.42 M/mm3 (4.6-6.20); Red Cell Distribution Width 13.8 % (11.5-14.5); White Blood Count 8.3 K/mm3 (4.5-10.0)
[2022-10-09 11:48] LABS: INR 2.5; Prothrombin Time 26.5 Seconds (11.1-14.7)
[2022-10-09 11:50] LABS: Alanine Aminotransferase 28 U/L (6-50); Albumin Level 3.9 g/dL (3.5-5.1); Alkaline Phosphatase 105 U/L (38-126); Anion Gap 6 mmol/L (8-16); Aspartate Amino Transferase 35 U/L (17-59); Bilirubin,Total 1.1 mg/dL (0.2-1.3); Blood Urea Nitrogen 52 mg/dL (9-20); Carbon Dioxide 26 mmol/L (22-30); Chloride 107 mmol/L (98-107); Estimated CRCL calculation 40 ml/min; Estimated Glomerular Filt Rate 39; Glucose 122 mg/dL (65-110); Potassium 4.4 mmol/L (3.4-5.0); Sodium 139 mmol/L (137-145)
[2022-10-09] MEDS: TETANUS,DIPHTHERIA,AC PERTUSSIS ADULT (0.5 ML) BOOSTRIX IM (13:16)
--- NOTE | 2022-10-09 13:52 | ED.FALL ---
HPI - Fall General Chief Complaint: Fall Stated Complaint: fall, ?LOC Time Seen by Provider: 10/09/22 11:19 History of Present Illness HPI Narrative: Patient is a 81-year-old male presents ER status post trip and fall. He was moving some [employer] lights cobblestone and striking his face on the ground. He takes warfarin due to a mechanical heart valve. He did not lose consciousness when he hit the ground. He does have a lot of abrasions to the face. No change in vision or hearing. C-spine immobilized upon arrival. Related Data Home Medications Medication Instructions Recorded Confirmed lisinopril 40 mg tablet 40 mg PO DAILY 09/24/19 09/16/22 lorazepam 0.5 mg tablet 0.5 mg PO TID PRN Anxiety 09/24/19 09/16/22 spironolactone 25 0.5 tablet PO DAILY 09/24/19 09/16/22 mg-hydrochlorothiazide 25 mg tablet sacubitril 24 mg-valsartan 26 mg 1 tablet PO BID 02/28/22 09/16/22 tablet (Entresto) furosemide 20 mg tablet 20 mg PO QAM 09/09/22 09/16/22 Allergies Allergy/AdvReac Type Severity Reaction Status Date / Time Penicillins Allergy Unknown Rash Verified 10/09/22 11:33 Review of Systems Review of Systems: All systems reviewed & are unremarkable except as noted in HPI and below Constitutional: Constitutional: Denies chills and Denies fever(s) Eyes: Eyes: Denies change in vision and Denies photophobia ENT: Denies nasal congestion and Denies sore throat Cardiovascular: Cardiovascular: Denies chest pain, Denies rapid heart rate and Denies radiating jaw, neck or arm pain Gastrointestinal: Gastrointestinal: Denies abdominal pain, Denies nausea and Reports vomiting Integumentary/Breasts: Skin/Breast: Denies erythema and Denies rash Comments: abrasions Neurologic: Denies syncope, Denies headache(s), Denies focal weakness and Denies numbness PMFSH Past Medical History Medical History Arthritis of ankle, left, degenerative Chronic atrial fibrillation Chronic kidney disease, stage 3 unspecified Claustrophobia COPD (chronic obstructive pulmonary disease) Counseling on health promotion and disease prevention 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 Encounter for medication management Fibrosis of lung Gout Hyp ht/kd NOS I-IV w hf Hypertensive heart disease with heart failure Left foot pain Olecranon bursitis of right elbow P-ANCA titer positive Right elbow pain Surgical History Surgical History S/P AVR (aortic valve replacement) Social History Social History Smoking packs per day: 0.75 Smoking cigarettes per day: 15.0 Years smoked: 65 Smoking pack-years: 48.75 Smoking status: Former smoker Tobacco type: cigarettes Second hand tobacco smoke exposure: No Alcohol intake: unknown Substance use: unknown Gender identity (if verbalized by the patient): Male Exam Narrative: GENERAL: Well-appearing, well-nourished, and in no acute distress. HEAD: Normocephalic, facial forehead abrasions. EYES: PERRL and EOMI. ENT: Mucous membranes moist. Nasal bridge with irregular laceration to centimeters in length. Superficial abrasions also noted. NECK: C-spine immobilized without midline tenderness. CHEST: Clear to auscultation. No respiratory distress. HEART: Regular rate and rhythm. Normal peripheral pulses. EXTREMITIES: Normal range of motion. No edema. SKIN: Warm, dry, no rash. NEURO: Alert and oriented x3. PSYCH: Normal mood and affect. Course Course Emergency Course: Patient informed of results. Ulceration sutured. Tetanus updated per Vital Signs Vital signs: Vital Signs Temperature 97.8 F 10/09/22 11:30 Pulse Rate 50 L 10/09/22 11:30 Respiratory Rate 16 10/09/22 11:30 Blood Pressure 134/69 10/09/22 11:30 Pulse Oximetry 98 10/09/22 11:30 Temperature 97.8 F 10/09/22 11:30
[2022-10-09 13:59] VITALS: BP 135/75; PULSE 86; RESP 18; O2SAT 97
== END 2022-10-09 14:05 | disposition home or self-care (01) ==
PROVIDERS: Emergency Provider Emergency Medicine; PCP Family Medicine
DX: S01.21XA Laceration without foreign body of nose, initial encounter (principal); S00.81XA Abrasion of other part of head, initial encounter; Z23 Encounter for immunization; I13.0 Hypertensive heart and chronic kidney disease with heart failure and stage 1 through stage 4 chronic kidney disease, or unspecified chronic kidney disease; N18.30 Chronic kidney disease, stage 3 unspecified; I50.9 Heart failure, unspecified; J84.10 Pulmonary fibrosis, unspecified; M19.072 Primary osteoarthritis, left ankle and foot; M19.012 Primary osteoarthritis, left shoulder; M19.011 Primary osteoarthritis, right shoulder; M19.029 Primary osteoarthritis, unspecified elbow; M10.9 Gout, unspecified; M47.812 Spondylosis without myelopathy or radiculopathy, cervical region; Z87.891 Personal history of nicotine dependence; I48.20 Chronic atrial fibrillation, unspecified; Z79.01 Long term (current) use of anticoagulants; W01.0XXA Fall on same level from slipping, tripping and stumbling without subsequent striking against object, initial encounter
CPT/HCPCS: 36415; 70450; 72125; 80053; 85025; 85610; 85730; 90471; 90715; 99283; 99284

== ENCOUNTER 2022-10-28 10:21 | Outpatient (CLI) | payer MEDICARE, SELFPAY ==
[2022-10-28 10:45] VITALS: PULSE 60; O2SAT 93
[2022-10-28 10:48] VITALS: PULSE 96; O2SAT 86
[2022-10-28 10:49] VITALS: O2SAT 87
[2022-10-28 10:50] VITALS: PULSE 103; O2SAT 89
[2022-10-28 11:00] VITALS: PULSE 68; O2SAT 92
--- NOTE | 2022-10-28 11:37 | HOMEO2EVAL ---
Evaluation was performed at [facility] Home Oxygen Evaluation RC: Home Oxygen (O2) Evaluation Start: 10/28/22 11:34 Freq: Status: Active Protocol: RPE Activity Type Activity Date Activity User E-sign Co-sign Detail Recorded Client Recorded Date Recorded By Document 10/28/22 10:45 MERNA [email or web address] 10/28/22 11:37 MERNA Document 10/28/22 10:48 MERNA [email or web address] 10/28/22 11:37 MERNA Document 10/28/22 10:49 MERNA [email or web address] 10/28/22 11:37 MERNA Document 10/28/22 10:50 MERNA [email or web address] 10/28/22 11:37 MERNA Document 10/28/22 11:00 MERNA [email or web address] 10/28/22 11:37 MERNA 10/28/22 10/28/22 10/28/22 10:45 10:48 10:49 Home O2 Evaluation [Oxygen] -Test Phase Resting Exercise Exercise -Oxygen Delivery Room Air Room Air Nasal Cannula -Oxygen Flow Rate (L/min) 1 [Pulse Oximetry] -Pulse Oximetry (90-100 %) 93 86 L 87 L [Pulse Rate] -Pulse Rate (60-100 beats/min) 60 96 [Comments] -Home Oxygen Evaluation Comments [Charges] -Treatment Charges O2 Evaluation - Outpatient 10/28/22 10/28/22 10:50 11:00 Home O2 Evaluation [Oxygen] -Test Phase Exercise Resting -Oxygen Delivery Nasal Cannula Room Air -Oxygen Flow Rate (L/min) 2 [Pulse Oximetry] -Pulse Oximetry (90-100 %) 89 L 92 [Pulse Rate] -Pulse Rate (60-100 beats/min) 103 H 68 [Comments] -Home Oxygen Evaluation Comments PT REQUIRES 2 L O2 WITH EXERTION/ ACTIVITY [Charges] -Treatment Charges
--- NOTE | 2022-10-28 11:37 | PCRCNOTE ---
FAXED HOME O2 EVAL TO OFFICE STAFF. THIS IS A NEW HOME O2 SET-UP
--- NOTE | 2022-10-28 12:56 | WPDPFTINT ---
PFT Procedure Performed PFT Procedure Performed Spirometry with Pre/Post Bronchodilator Plethysmography (Lung Vol) Diffusing Cap (DLCO) Flow Vol Loop PFT Interpretation This is a pulmonary function test with pre and post-bronchodilator spirometry, plethysmography and diffusing capacity. The test was performed and results interpreted in accordance with the 2019 and 2005 ATS/ERS Task Force guidelines respectively using the Global Lung Function Initiative-2012 reference equations. Patient demonstrated good effort and cooperation. Reproducibility criteria were met. The quality of the pre bronchodilator spirometry maneuver was Grade A and post bronchodilator spirometry maneuver was Grade A. Findings: Spirometry: The contour the expiratory flow tracing resembles that of a witch's hat . The pre bronchodilator FVC is 2.72 L, 63% predicted. The pre bronchodilator FEV1 is 2.08 L, 65% predicted. The pre bronchodilator FEV1: FVC ratio 76%. The post bronchodilator FVC is 2.64 L, representing a 3% decrease. The post bronchodilator FEV1 is 2.06 L, representing 1% decrease. The post bronchodilator FEV1: FVC ratio 78%. Plethysmography: The total lung capacity is 3.39 L, 44% predicted. The functional residual capacity is 1.52 L, 37% predicted. The residual volume is 0.67 L, 24% predicted. Diffusing capacity: The diffusing capacity unadjusted for hemoglobin and carboxyhemoglobin is 9.4, 37% predicted. The diffusing capacity adjusted for alveolar volume is 2.57, 74% predicted. Impression: There is a moderate restrictive ventilatory abnormality. The spirometry is normal without evidence of an obstructive abnormality. There is no significant improvement after inhaling a single dose of albuterol. The diffusing capacity unadjusted for hemoglobin and carboxyhemoglobin is severely decreased and normalizes when adjusted for alveolar volume. There are no prior studies for comparison
== END 2022-10-28 10:22 | disposition home or self-care (01) ==
LOC: ANHPFT 10:22
PROVIDERS: PCP Family Medicine; Visit Provider Internal Medicine Pulmonary Disease
DX: J44.9 Chronic obstructive pulmonary disease, unspecified (principal); R94.2 Abnormal results of pulmonary function studies
CPT/HCPCS: 94060; 94618; 94726; 94729